=== PATIENT | female | born 1950 | race Caucasian/White ===

== ENCOUNTER 2017-09-09 10:33 | Emergency (ER) | payer MEDICAID ==
--- NOTE | 2017-09-09 10:53 | ER Document Report ---
ED General - General Mode of Arrival: Wheelchair Information source: Patient <CHRISTIE,TAMPURVI - Last Filed: 09/09/17 10:47> <DARRYL HARRELL - Last Filed: 09/09/17 13:38> - General Chief Complaint: Fever Stated Complaint: FEVER FALL Time Seen by Provider: 09/09/17 10:38 Notes: Patient is a 67 year old female presenting to the emergency department complaining of a fever of 100.5 onset this morning. Patient states that she also has symptoms of chest pain, sore throat, dry cough, and runny nose onset 3 days ago. Patient states that she had a mechanical trip and fall 3 days ago. She did not hit her head. At bedside patients voice is muffled. Patient currently takes Clonazepam for epilepsy. (STEPHANIE SORIANO) Chest pain is described as sharp and stabbing, no history of AR. (DARRYL HARRELL) - Related Data Allergies/Adverse Reactions: No Known Allergies Allergy (Verified 09/09/17 12:51) Past Medical History - General Information source: Patient - Social History Smoking Status: Current Every Day Smoker Cigarette use (# per day): Yes Chew tobacco use (# tins/day): No Smoking Education Provided: No Family History: Other - Father with a history of CVA, mother and 2 children with history of epilepsy Neurological Medical History: Reports: Hx Seizures - Immunizations Hx Diphtheria, Pertussis, Tetanus Vaccination: Yes <STEPHANIE SORIANO - Last Filed: 09/09/17 10:47> - Social History Family History: Other <DARRYL HARRELL - Last Filed: 09/09/17 13:38> Review of Systems - Review of Systems Constitutional: See HPI, Fever EENT: See HPI, Nose congestion Cardiovascular: See HPI, Chest pain Respiratory: No symptoms reported Gastrointestinal: No symptoms reported Genitourinary: No symptoms reported Female Genitourinary: No symptoms reported Musculoskeletal: No symptoms reported Skin: No symptoms reported Hematologic/Lymphatic: No symptoms reported Neurological/Psychological: No symptoms reported -: Yes All other systems reviewed and negative <STEPHANIE SORIANO - Last Filed: 09/09/17 10:47> Physical Exam - General General appearance: Appears well - HEENT Head: Normocephalic - Respiratory Respiratory status: No respiratory distress Breath sounds: Nonproductive cough, Wheezing - Expiratory - Cardiovascular Rhythm: Regular <STEPHANIE SORIANO - Last Filed: 09/09/17 10:47> - General General appearance: Alert In distress: None - HEENT Eyes: Normal Extraocular movements intact: Yes Mouth/Lips: Other - Edentulous, oral mucosa is moist, tongue is midline. Neck: Normal, Other - Trachea is midline, patient's voice is slightly muffled at this time however there is no evidence on physical examination of retropharyngeal abscess or peritonsillar abscess.. No: Anterior cervical chain - Cardiovascular Heart sounds: Normal auscultation Murmur: No - Neurological Neuro grossly intact: Yes - Psychological Associated symptoms: Normal affect - Skin Skin Temperature: Warm Skin Moisture: Dry Skin Color: Normal <DARRYL HARRELL - Last Filed: 09/09/17 13:38> - Vital signs Vitals: Temp Pulse BP Pulse Ox 98.8 F 101 H 127/66 H 96 09/09/17 10:44 09/09/17 10:44 09/09/17 10:44 09/09/17 10:44 Notes: Temperature is 98.8, heart rate is 97, blood pressure is 128/67, respiratory rate is 20, oxygen saturation is 95% on room air. (DARRYL HARRELL) Course <STEPHANIE SORIANO - Last Filed: 09/09/17 10:47> <DARRYL HARRELL - Last Filed: 09/09/17 13:38> - Re-evaluation Re-evalutation: 09/09/17 12:38 Chest x-ray shows no acute process, suspect the fever is viral in origin, given the wheezing we will start the patient on steroids and breathing treatments particularly given her smoking history. No indication for antibiotics. Discharge the patient home and asked her to follow-up with her primary care provider within the next week. (DARRYL HARRELL) - Vital Signs Vital signs: Temp Pulse Resp BP Pulse Ox 98.7 F 86 18 120/68 95 09/09/17 12:48 09/09/17 12:48 09/09/17 12:48 09/09/17 12:48 09/09/17 12:48 Discharge <STEPHANIE SORIANO - Last Filed: 09/09/17 10:47> <DARRYL HARRELL - Last Filed: 09/09/17 13:38> - Discharge Clinical Impression: Viral upper respiratory tract infection with cough, Tobacco abuse, Tobacco abuse counseling Condition: Stable Disposition: HOME, SELF-CARE Additional Instructions: Upper Respiratory Illness You have a viral infection of the respiratory passages -- a "cold." This common infection causes nasal congestion, drainage, and often sore throat and cough. It is caused by a virus and is highly contagious. The disease usually lasts a week or more, though the worst symptoms are usually over in 3 or 4 days. There is no "cure" for the viral infection -- it must run its course. If there is a complication, such as bacterial infection in the nose, sinuses, middle ear, or bronchial tubes, antibiotics may be required, but antibiotics won 't affect the virus. If you smoke, you should STOP!! Drink plenty of fluids. A humidifier may help. An expectorant medication or decongestant may make you more comfortable. Use acetaminophen or ibuprofen for fever or aches. See the doctor if fever persists over two or three days, if there is any significant worsening of your symptoms, or if you simply fail to improve as expected. Please use nasal saline rinses such as a NetiPot or NeilMed Sinus Rinses. I have prescribed steroids and an albuterol inhaler, this should help to decrease your cough and her wheezing. The should also take away your sharp stabbing chest pain. Prescriptions: Albuterol Sulfate [Proair HFA Inhalation Aerosol 8.5 gm MDI] 2 puff IH Q4H PRN # 1 mdi PRN Reason: Prednisone [Deltasone 20 mg Tablet] 3 tab PO DAILY 5 Days tablet Forms: Smoking Cessation Education Referrals: ZAHRA MAC DO [NO LOCAL MD] - Follow up as needed Scribe Attestation: 09/09/17 13:38 I personally performed the services described in the documentation, reviewed and edited the documentation which was dictated to the scribe in my presence, and it accurately records my words and actions. (DARRYL HARRELL) Scribe Documentation - Scribe Written by Kya:: Kya Lainez, 09/09/2017 10:56 acting as scribe for :: aKy <STEPHANIE SORIANO - Last Filed: 09/09/17 10:47>
--- NOTE | 2017-09-09 11:55 | RADIOLOGY REPORT (SQ) ---
EXAM DESCRIPTION: CHEST PA/LAT COMPLETED DATE/TIME: 09/09/2017 11:45 am REASON FOR STUDY: cough, fevers COMPARISON: Two-view chest 04/30/2014, 03/26/2014 EXAM PARAMETERS: NUMBER OF VIEWS: two views TECHNIQUE: Digital Frontal and Lateral radiographic views of the chest acquired. RADIATION DOSE: NA LIMITATIONS: none FINDINGS: LUNGS AND PLEURA: Stable biapical pleural-parenchymal scarring. Lungs are hyperinflated and hyperlucent from obstructive disease. No acute infiltrates. No pleural effusion. No pneumothorax. MEDIASTINUM AND HILAR STRUCTURES: No masses or contour abnormalities. HEART AND VASCULAR STRUCTURES: Heart normal size. No evidence for failure. BONES: Osteoporotic. No acute fracture HARDWARE: None in the chest. OTHER: No other significant finding. IMPRESSION: Obstructive lung disease. No focal infiltrates worrisome for pneumonia TECHNICAL DOCUMENTATION: JOB ID: [id number] [employer]- All Rights Reserved
[2017-09-09 12:49] VITALS: BP 120/68
== END 2017-09-09 13:00 | disposition home or self-care (01) ==
LOC: ER 10:33
DX: J06.9 Acute upper respiratory infection, unspecified (principal); B97.89 Other viral agents as the cause of diseases classified elsewhere; R50.9 Fever, unspecified; R07.9 Chest pain, unspecified; J02.9 Acute pharyngitis, unspecified; R05 Cough; R09.89 Other specified symptoms and signs involving the circulatory and respiratory systems; W19.XXXA Unspecified fall, initial encounter; F17.200 Nicotine dependence, unspecified, uncomplicated
CPT/HCPCS: 71020; 99283

== ENCOUNTER 2017-11-16 21:33 | Emergency (ER) | payer MEDICAID ==
[2017-11-16] MEDS ORDERED: ACETAMINOPHEN 325 MG TABLET PO ONE (23:37)
--- NOTE | 2017-11-16 23:39 | ER Document Report ---
ED General - General Chief Complaint: Chest Pain Stated Complaint: CHEST PAIN Notes: Patient complains of fever, cough and chest pain, with dysuria as well. Syptoms present for several days. Had some dysuria and urinary incontinence TRAVEL OUTSIDE OF THE [place] IN LAST 30 DAYS: No - Related Data Allergies/Adverse Reactions: No Known Allergies Allergy (Verified 09/09/17 12:51) Past Medical History - Social History Family History: Other Neurological Medical History: Reports: Hx Seizures Renal/ Medical History: Denies: Hx Peritoneal Dialysis - Immunizations Hx Diphtheria, Pertussis, Tetanus Vaccination: Yes
--- NOTE | 2017-11-16 23:48 | ER Document Report ---
ED Medical Screen (RME) - General Chief Complaint: Chest Pain Stated Complaint: CHEST PAIN Time Seen by Provider: 11/16/17 23:39 Notes: 67-year-old female patient to the emergency department complaining of cough, fever, chest pain. Also complaining of dysuria with frequency of urination and some urinary incontinence. Things have been present for several days. Does not get the flu shot because she is allergic to it. Does not smoke but used to. Patient denies any abdominal pain at this time. I have greeted and performed a rapid initial assessment of this patient. A comprehensive ED assessment and evaluation of the patient, analysis of test results and completion of the medical decision making process will be conducted by additional ED providers. TRAVEL OUTSIDE OF THE [place] IN LAST 30 DAYS: No - Related Data Allergies/Adverse Reactions: No Known Allergies Allergy (Verified 09/09/17 12:51) Past Medical History Neurological Medical History: Reports: Hx Seizures Renal/ Medical History: Denies: Hx Peritoneal Dialysis - Immunizations Hx Diphtheria, Pertussis, Tetanus Vaccination: Yes
[2017-11-17 00:08] LABS: ABSOLUTE LYMPHOCYTES (AUTO) 0.9 10^3/uL (0.5-4.7); ABSOLUTE MONOCYTES (AUTO) 0.5 10^3/uL (0.1-1.4); BASOPHILS % (AUTO) 0.6 % (0-2); HEMATOCRIT 37.4 % (36.0-47.0); HEMOGLOBIN 12.4 g/dL (12.0-15.5); LYMPHOCYTES % (AUTO) 16.2 % (13-45); MEAN CORPUSCULAR HEMOGLOBIN 27.2 pg (27.0-33.4); MEAN CORPUSCULAR HGB CONC 33.1 g/dL (32.0-36.0); MEAN CORPUSCULAR VOLUME 82 fl (80-97); MONOCYTES % (AUTO) 9.4 % (3-13); PLATELET COUNT 224 10^3/uL (150-450); RED BLOOD COUNT 4.55 10^6/uL (3.72-5.28); RED CELL DISTRIBUTION WIDTH 15.7 % (11.5-14.0); SEGMENTED NEUTROPHILS % (AUTO) 73.8 % (42-78); TOTAL CELLS COUNTED % (AUTO) 100 %; WHITE BLOOD COUNT 5.4 10^3/uL (4.0-10.5)
[2017-11-17 00:30] LABS: A TYPE INFLUENZA AG NEGATIVE (NEGATIVE); B INFLUENZA AG NEGATIVE (NEGATIVE)
[2017-11-17 00:31] LABS: APPEARANCE,URINE CLOUDY; BILIRUBIN,URINE NEGATIVE (NEGATIVE); COLOR,URINE AMBER; GLUCOSE, URINE NEGATIVE (NEGATIVE); KETONES,URINE TRACE mg/dL (NEGATIVE); LEUKOCYTE ESTERASE,URINE MODERATE (NEGATIVE); NITRITE,URINE NEGATIVE (NEGATIVE); PROTEIN,URINE NEGATIVE (NEGATIVE); URINE SPECIFIC GRAVITY 1.026; UROBILINOGEN,URINE NEGATIVE mg/dL (<2.0)
[2017-11-17 00:33] LABS: ALANINE AMINOTRANSFERASE 37 U/L (9-52); ALBUMIN 3.9 g/dL (3.5-5.0); ALKALINE PHOSPHATASE 83 U/L (38-126); ANION GAP 10 (5-19); ASPARTATE AMINO TRANSFERASE 35 U/L (14-36); BILIRUBIN,DIRECT 0.2 mg/dL (0.0-0.4); BILIRUBIN,TOTAL 0.3 mg/dL (0.2-1.3); BLOOD UREA NITROGEN 12 mg/dL (7-20); CALCIUM 9.2 mg/dL (8.4-10.2); CARBON DIOXIDE 24 mmol/L (22-30); CHLORIDE 103 mmol/L (98-107); GLUCOSE 101 mg/dL (75-110); POTASSIUM 3.7 mmol/L (3.6-5.0); SODIUM 136.5 mmol/L (137-145); TOTAL PROTEIN 6.1 g/dL (6.3-8.2)
--- NOTE | 2017-11-17 02:02 | ER Document Report ---
ED General - General Chief Complaint: Chest Pain Stated Complaint: CHEST PAIN Time Seen by Provider: 11/16/17 23:39 Notes: She is a 59-year-old female comes in with complaint of some weakness, fever, coughing, and some dysuria. She also mentions she has some left shoulder pain. She said the shoulder pain is from where she had a pickup her boyfriend. She says when he picked him up she felt a strain in her shoulder. She says she is able move her shoulder well but is just sore. No actual blunt trauma to the shoulder. On the complaints chart she did right chest pain; however, the patient says no chest pain she has is when she coughs. She denies any vomiting. No abdominal pain. No diarrhea. No recent extremity swelling. She is a former smoker who quit 1 month ago. No other complaints at this time. TRAVEL OUTSIDE OF THE [place] IN LAST 30 DAYS: No - Related Data Allergies/Adverse Reactions: No Known Allergies Allergy (Verified 09/09/17 12:51) Past Medical History - Social History Smoking Status: Former Smoker Frequency of alcohol use: None Drug Abuse: None Family History: Other Patient has suicidal ideation: No Patient has homicidal ideation: No Neurological Medical History: Reports: Hx Seizures Renal/ Medical History: Denies: Hx Peritoneal Dialysis - Immunizations Hx Diphtheria, Pertussis, Tetanus Vaccination: Yes Review of Systems - Review of Systems Notes: My Normal Review Basic REVIEW OF SYSTEMS: CONSTITUTIONAL : Denies fever, chills, or sweats. Denies recent illness. EENT: Nasal congestion. CARDIOVASCULAR: Chest pain with cough. RESPIRATORY: Recurrent cough. GASTROINTESTINAL: Denies abdominal pain. Denies nausea, vomiting, or diarrhea. Denies constipation. Last BM: GENITOURINARY: Dysuria. MUSCULOSKELETAL: Denies neck or back pain or joint pain or swelling. SKIN: Denies rash or skin lesions. NEUROLOGICAL: Denies altered mental status or loss of consciousness. Denies headache. Denies weakness or paralysis or loss of use of either side. Denies problems with gait or speech. Denies sensory or motor loss. ALL OTHER SYSTEMS REVIEWED AND NEGATIVE. Physical Exam - Vital signs Vitals: Temp Pulse Resp BP Pulse Ox 101.6 F H 93 20 110/60 93 11/16/17 22:41 11/16/17 22:41 11/16/17 22:41 11/16/17 22:41 11/16/17 22:41 - Notes Notes: General Appearance: Well nourished, alert, cooperative, no acute distress, no obvious discomfort. Well appearing. Dry cough during exam. Vitals: reviewed, See vital signs table. Head: no swelling or tenderness to the head Eyes: PERRL, EOMI, Conjuctiva clear Mouth: No decreasd moisture. No teeth. Throat: No tonsillar inflammation, No airway obstruction, No lymphadenopathy Lungs: No wheezing, No rales, No rhonci, No accessory muscle use, good air exchange bilaterally. Heart: Normal rate, Regular rythm, No murmur, no rub Abdomen: Normal BS, soft, No rigidity, No abdominal tenderness, No guarding, no rebound, no abdominal masses, no organomegaly Extremities: strength 5/5 in all extremities, good pulses in all extremities, no swelling or tenderness in the extremities, no edema. Skin: warm, dry, appropriate color, no rash Neuro: speech clear, oriented x 3, normal affect, responds appropriately to questions. Course - Re-evaluation Re-evalutation: 11/17/17 03:58 Patient's chest x-ray showed no evidence of pneumonia. Her laboratory evaluation is unremarkable except for UTI. This would explain her dysuria. She also has a upper respiratory infection being that she has nasal congestion and cough. She has no wheezing or lung ellis. She does not require any treatments at this time. Her boyfriend's recent decision admitted to the hospital because of having upper respiratory type infection symptoms but then also passing out on the floor. He had some rhabdomyolysis. She herself has not felt dizzy or lightheaded or felt like she had a pass out. Her left shoulder appears to be a chronic pain worse when she picked up her boyfriend off the floor. She has full range of motion of the shoulder with a little bit of pain. No deformity. No blunt trauma. No need for x-ray. Patient will be discharged home with prescription for Keflex. She strongly encouraged to return to ER if she has difficulty breathing, fevers, dental pain, or she feels that she is worsening. Patient agrees with plan will be discharged home. Dictation of this chart was performed using voice recognition software; therefore, there may be some unintended grammatical errors. - Vital Signs Vital signs: Temp Pulse Resp BP Pulse Ox 100.3 F 85 20 111/70 93 11/17/17 01:18 11/17/17 01:18 11/17/17 01:18 11/17/17 01:18 11/17/17 01:18 - Laboratory Result Diagrams: 11/16/17 23:40 11/16/17 23:40 Laboratory results interpreted by me: 11/16/17 11/16/17 11/16/17 23:40 23:40 23:45 RDW 15.7 H Sodium 136.5 L Total Protein 6.1 L Urine Ketones TRACE H Urine Blood SMALL H Ur Leukocyte Esterase MODERATE H Discharge - Discharge Clinical Impression: UTI (urinary tract infection) Qualifiers: Urinary tract infection type: site unspecified Hematuria presence: without hematuria Qualified Code(s): N39.0 - Urinary tract infection, site not specified URI (upper respiratory infection) Qualifiers: URI type: unspecified URI Qualified Code(s): J06.9 - Acute upper respiratory infection, unspecified Condition: Good Disposition: HOME, SELF-CARE Additional Instructions: Please take the antibiotics as prescribed. You testing shows that you do have a bladder infection. You also likely have a cold. Please take the medications as prescribed. Please return to the ER immediately if you have fevers, difficulty breathing, or if you feel that you are worsening. Follow up with your doctor in 1-2 days. Prescriptions: Cephalexin Monohydrate [Keflex 500 mg Capsule] 500 mg PO BID 7 Days capsule
[2017-11-17] MEDS ORDERED: LIDOCAINE 1% INJ-PF (10 MG/ML) 30 ML SDV INFIL ONE (03:50)
[2017-11-17] MEDS ORDERED: CEFTRIAXONE INJ 500 MG VIAL IM ONE (03:50)
--- NOTE | 2017-11-17 04:18 | RADIOLOGY REPORT (SQ) ---
EXAM DESCRIPTION: CHEST PA/LAT CLINICAL HISTORY: cough fever COMPARISON: 09/09/2017 FINDINGS: Frontal and lateral views of the chest. Atherosclerotic calcification aortic arch. Heart is not enlarged. Hyperinflation. No consolidation, pneumothorax, or pleural effusion. No displaced rib fractures identified. Upper abdominal soft tissues are unremarkable. IMPRESSION: 1. No acute pulmonary process identified. Findings suggest obstructive lung disease.
[2017-11-17 06:55] VITALS: BP 117/53
--- NOTE | 2017-11-17 11:56 | EKG REPORT ---
SEVERITY:- ABNORMAL ECG - SINUS RHYTHM NONSPECIFIC REPOL ABNORMALITY, DIFFUSE LEADS : Confirmed by: Sindhu Shelton 17-Nov-2017 11:54:42
== END 2017-11-17 06:40 | disposition home or self-care (01) ==
LOC: ER 21:33
DX: J06.9 Acute upper respiratory infection, unspecified (principal); N39.0 Urinary tract infection, site not specified; R53.1 Weakness; R50.9 Fever, unspecified; R05 Cough; R09.81 Nasal congestion; R30.0 Dysuria; M25.512 Pain in left shoulder; R07.89 Other chest pain; Z87.891 Personal history of nicotine dependence; Z88.1 Allergy status to other antibiotic agents
CPT/HCPCS: 93005; 99285; 96372; 36415; 87086; 85025; 87088; 80053; 81001; 84484; 87186; 87804; 71046; 93010; J3490 ×2; J0696

== ENCOUNTER 2018-02-10 14:56 | Emergency (ER) | payer MEDICARE, MEDICAID ==
--- NOTE | 2018-02-10 16:06 | ER Document Report ---
ED Dizziness/Weakness - General Mode of Arrival: Ambulatory Information source: Patient TRAVEL OUTSIDE OF THE [place] IN LAST 30 DAYS: No <LUANA LOPEZ - Last Filed: 02/10/18 16:36> <JOSE ROSS - Last Filed: 02/10/18 18:11> - General Chief Complaint: Dizziness Stated Complaint: WEAKNESS Time Seen by Provider: 02/10/18 15:47 Notes: 68 y.o female presents to the ED with weakness and dizziness for the past 2 weeks. Pt states that she has been falling due to dizziness whenever she stands up. She denies being dizzy when sitting still. Pt states that her dizziness worsens when turning her head. Pt reports that she takes medication for a sleep disorder. She denies any HTN, DM, or any other medical issues. She reports a PSHx of hysterectomy. (LUANA LOPEZ) - Related Data Allergies/Adverse Reactions: No Known Allergies Allergy (Verified 09/09/17 12:51) Past Medical History - General Information source: Patient - Social History Smoking Status: Current Some Day Smoker Chew tobacco use (# tins/day): No Smoking Education Provided: Yes Frequency of alcohol use: None Drug Abuse: None Lives with: Alone - [facility] Family History: Other Neurological Medical History: Reports: Hx Seizures Renal/ Medical History: Denies: Hx Peritoneal Dialysis Past Surgical History: Reports: Hx Hysterectomy - Immunizations Hx Diphtheria, Pertussis, Tetanus Vaccination: Yes <LUANA LOPEZ - Last Filed: 02/10/18 16:36> Review of Systems - Review of Systems Constitutional: See HPI, Weakness EENT: No symptoms reported Cardiovascular: No symptoms reported Respiratory: No symptoms reported Gastrointestinal: No symptoms reported Genitourinary: No symptoms reported Female Genitourinary: No symptoms reported Musculoskeletal: No symptoms reported Skin: No symptoms reported Hematologic/Lymphatic: No symptoms reported Neurological/Psychological: See HPI, Other - Dizziness and falling down -: Yes All other systems reviewed and negative <LUANA LOPEZ - Last Filed: 02/10/18 16:36> Physical Exam <LUANA LOPEZ - Last Filed: 02/10/18 16:36> <JOSE ROSS - Last Filed: 02/10/18 18:11> - Vital signs Vitals: Temp Pulse Resp BP Pulse Ox 97.8 F 67 18 121/54 L 99 02/10/18 15:15 02/10/18 15:15 02/10/18 15:15 02/10/18 15:15 02/10/18 15:15 - Notes Notes: General: Alert, oriented, appears well. HEENT: Normocephalic. Atraumatic. Oropharynx clear. PERRL. Lateral gaze nystagmus. Had patient move head [id number] with quick motions which caused sudden severe dizziness. Neck: Supple. Non-tender. No bruits Respiratory: No respiratory distress. Clear and equal breath sounds bilaterally. Cardiovascular: Regular rate and rhythm. Abdominal: Normal Inspection. Soft, non-tender. No distension. Normal Bowel Sounds. Back: Non-tender. No deformity or step off. Extremities: Moves all four extremities. Upper extremities: Normal inspection. Normal ROM. Lower extremities: Normal inspection. No edema. Normal ROM. Neurological: Normal cognition. AAOx4. Normal speech. Psychological: Normal affect. Normal Mood. Skin: Warm. Dry. Normal color. (LUANA LOPEZ) Course - Laboratory Result Diagrams: 02/10/18 16:18 02/10/18 16:18 <LUANA LOPEZ - Last Filed: 02/10/18 16:36> - Laboratory Result Diagrams: 02/10/18 16:18 02/10/18 16:18 - Diagnostic Test Radiology reviewed: Image reviewed, Reports reviewed - CT scan of the head is unremarkable. - EKG Interpretation by [facility] EKG shows normal: Sinus rhythm, [place], Intervals, QRS Complexes, ST-T Waves Rate: Normal - 71 Rhythm: NSR When compared to previous EKG there are: No significant change <JOSE ROSS - Last Filed: 02/10/18 18:11> - Re-evaluation Re-evalutation: 02/10/18 17:29 Patient states the dizziness seems to be better. Had her sit up and look about rapidly and she only had minimal dizziness associated with it at this time after the meclizine. (JOSE ROSS) - Vital Signs Vital signs: Temp Pulse Resp BP Pulse Ox 97.8 F 67 16 118/73 98 02/10/18 15:15 02/10/18 15:15 02/10/18 17:01 02/10/18 17:01 02/10/18 17:01 - Laboratory Laboratory results interpreted by me: 02/10/18 02/10/18 02/10/18 16:18 16:18 17:26 RDW 16.0 H Creatinine 0.48 L Total Protein 5.5 L Ur Leukocyte Esterase TRACE H Discharge <LUANA LOPEZ - Last Filed: 02/10/18 16:36> <JOSE ROSS - Last Filed: 02/10/18 18:11> - Discharge Clinical Impression: Vertigo Condition: Stable Disposition: HOME, SELF-CARE Additional Instructions: Vertigo: You seem to be experiencing vertigo -- a whirling dizziness which may be accompanied by nausea and vomiting or staggering. Vertigo is often caused by an irritation of the inner ear, in which case it is called labyrinthitis. It can also be a symptom of a degenerating inner ear, nerve damage, or brain injury. Your physician has evaluated you to determine whether any further testing is necessary. Vertigo is often treated with dramamine or meclizine. These medications are helpful, but stronger medication may be needed if you are vomiting. Rest in bed. You should not drive or operate machinery until completely better. It may take one to three weeks for recovery. If there are new symptoms, such as decreased hearing or vision, severe headache, weakness or faintness, or confusion, call the physician. Take the medication as prescribed. Take fall precautions as long as you are having dizziness. Follow-up with your doctor next week if not improving. RETURN TO THE EMERGENCY ROOM IF ANY NEW OR WORSENING SYMPTOMS. Prescriptions: Meclizine HCl [Antivert 25 mg Tablet] 25 mg PO TID PRN #20 tablet PRN Reason: Scribe Attestation: 02/10/18 17:29 I personally performed the services described in the documentation, reviewed and edited the documentation which was dictated to the scribe in my presence, and it accurately records my words and actions. (JOSE ROSS) Scribe Documentation - Scribe Written by Kya:: Kya Salinas 02/10/2018 1613 acting as scribe for :: Tangela <LUANA LOPEZ - Last Filed: 02/10/18 16:36>
[2018-02-10] MEDS ORDERED: MECLIZINE HCL 25 MG TABLET PO ONE (16:09)
[2018-02-10 16:28] LABS: ABSOLUTE EOSINOPHILS # (AUTO) 0.1 10^3/uL (0.0-0.6); ABSOLUTE LYMPHOCYTES (AUTO) 1.7 10^3/uL (0.5-4.7); ABSOLUTE MONOCYTES (AUTO) 0.4 10^3/uL (0.1-1.4); ABSOLUTE NEUT (AUTO) 2.9 10^3/uL (1.7-8.2); BASOPHILS % (AUTO) 0.5 % (0-2); EOSINOPHILS % (AUTO) 1.2 % (0-6); HEMATOCRIT 36.8 % (36.0-47.0); HEMOGLOBIN 12.1 g/dL (12.0-15.5); LYMPHOCYTES % (AUTO) 32.9 % (13-45); MEAN CORPUSCULAR HEMOGLOBIN 27.8 pg (27.0-33.4); MEAN CORPUSCULAR HGB CONC 32.8 g/dL (32.0-36.0); MEAN CORPUSCULAR VOLUME 85 fl (80-97); MONOCYTES % (AUTO) 8.7 % (3-13); PLATELET COUNT 279 10^3/uL (150-450); RED BLOOD COUNT 4.35 10^6/uL (3.72-5.28); SEGMENTED NEUTROPHILS % (AUTO) 56.7 % (42-78); TOTAL CELLS COUNTED % (AUTO) 100 %; WHITE BLOOD COUNT 5.2 10^3/uL (4.0-10.5)
--- NOTE | 2018-02-10 16:40 | RADIOLOGY REPORT (SQ) ---
EXAM DESCRIPTION: CT HEAD WITHOUT COMPLETED DATE/TIME: 02/10/2018 4:28 pm REASON FOR STUDY: 2 weeks of dizzy, falling, headaches COMPARISON: 04/30/2014. TECHNIQUE: Axial images acquired through the brain without intravenous contrast. Images reviewed wi th bone, brain and subdural windows. Additional sagittal and coronal reconstructions were generated. Images stored on PACS. All CT scanners at this facility use dose modulation, iterative reconstruction, and/or weight based d osing when appropriate to reduce radiation dose to as low as reasonably achievable (ALARA). [facility]: Dose Right [facility]: CareDose [facility]: Dose Right [facility]: Teradose 4D [facility]: UpNext RADIATION DOSE: CT Rad equipment meets quality standard of care and radiation dose reduction techniq ues were employed. CTDIvol: 53.2 mGy. DLP: 884 mGy-cm. mGy. LIMITATIONS: None. FINDINGS: VENTRICLES: Normal size and contour. CEREBRUM: No masses. No hemorrhage. No midline shift. No evidence for acute infarction. Normal gra y/white matter differentiation. No areas of low density in the white matter. CEREBELLUM: No masses. No hemorrhage. No alteration of density. No evidence for acute infarction. EXTRAAXIAL SPACES: No fluid collections. No masses. ORBITS AND GLOBE: No intra- or extraconal masses. Normal contour of globe without masses. CALVARIUM: No fracture. PARANASAL SINUSES: No fluid or mucosal thickening. SOFT TISSUES: No mass or hematoma. OTHER: No other significant finding. IMPRESSION: NORMAL BRAIN CT WITHOUT CONTRAST. EVIDENCE OF ACUTE STROKE: NO. COMMENT: Quality ID # [id number]: Final reports with documentation of one or more dose reduction techniques (e.g., Automated exposure control, adjustment of the mA and/or kV according to patient size, use of iterative reconstruction technique) TECHNICAL DOCUMENTATION: JOB ID: [id number] [employer]- All Rights Reserved Reading location - IP/workstation name: [email or web address]
[2018-02-10 16:58] LABS: ALANINE AMINOTRANSFERASE 28 U/L (9-52); ALBUMIN 3.5 g/dL (3.5-5.0); ALKALINE PHOSPHATASE 98 U/L (38-126); ANION GAP 9 (5-19); ASPARTATE AMINO TRANSFERASE 20 U/L (14-36); BILIRUBIN,DIRECT 0.2 mg/dL (0.0-0.4); BILIRUBIN,TOTAL 0.2 mg/dL (0.2-1.3); BLOOD UREA NITROGEN 11 mg/dL (7-20); CALCIUM 9.1 mg/dL (8.4-10.2); CARBON DIOXIDE 27 mmol/L (22-30); CHLORIDE 107 mmol/L (98-107); GLUCOSE 95 mg/dL (75-110); POTASSIUM 4.2 mmol/L (3.6-5.0); TOTAL PROTEIN 5.5 g/dL (6.3-8.2)
[2018-02-10 17:57] LABS: APPEARANCE,URINE CLEAR; BILIRUBIN,URINE NEGATIVE (NEGATIVE); COLOR,URINE YELLOW; GLUCOSE, URINE NEGATIVE (NEGATIVE); KETONES,URINE NEGATIVE (NEGATIVE); LEUKOCYTE ESTERASE,URINE TRACE (NEGATIVE); NITRITE,URINE NEGATIVE (NEGATIVE); PROTEIN,URINE NEGATIVE (NEGATIVE); URINE SPECIFIC GRAVITY 1.011; UROBILINOGEN,URINE NEGATIVE mg/dL (<2.0)
[2018-02-10 18:36] VITALS: BP 127/57
--- NOTE | 2018-02-10 21:12 | EKG REPORT ---
SEVERITY:- BORDERLINE ECG - SINUS RHYTHM BORDERLINE INFERIOR Q WAVES : Confirmed by: Sindhu Shelton 10-Feb-2018 21:12:15
== END 2018-02-10 18:37 | disposition home or self-care (01) ==
LOC: ER 14:56
DX: R42 Dizziness and giddiness (principal); R53.1 Weakness; Z90.710 Acquired absence of both cervix and uterus; F17.200 Nicotine dependence, unspecified, uncomplicated
CPT/HCPCS: 93005; 99284; 36415; 85025; 80053; 81001; 70450; 93010; A9270

== ENCOUNTER 2018-08-14 09:16 | Day surgery (SDC) | payer MEDICAID, MEDICARE ==
[~2018-08-14 09:16] MED LIST: PROPOFOL INJ 200 MG/20 ML VIAL IV ONE
[2018-08-14 11:27] VITALS: BP 138/78
--- NOTE | 2018-08-14 12:39 | Operative Report ---
Operative Report DATE OF SURGERY: 08/14/18 Operative Report: The risks, benefits and alternatives of the procedure including risk of bleeding , perforation requiring surgery are explained to the patient in detail and informed consent is obtained. The patient is taken back to the endoscopy suite and placed in a left, lateral decubital position. Timeout was called. Propofol medication is administered. A rectal examination is done which did not reveal any masses, tears or fissures. An Olympus videoscope was inserted into the patient's rectum. The scope was then carefully advanced all the way to the cecum. The cecum was identified by the usual anatomical landmarks including the ileocecal valve as well as the appendiceal office. Photodocumentation is obtained. The scope was then sequentially pulled back via the various segments of the colon including the ascending colon, hepatic flexure, transverse colon, splenic flexure, descending colon and finally to the rectosigmoid portions of the colon. Retroflexion maneuver is performed. PREOPERATIVE DIAGNOSIS: Colorectal cancer screening. Change of bowel habits POSTOPERATIVE DIAGNOSIS: Right side colon inflammation status post biopsy rule out lymphocytic, microscopic, collagenous colitis. Somewhat of a redundant colon. Internal hemorrhoids OPERATION: Colonoscopy with biopsy SURGEON: CARIDAD ERICKSON ANESTHESIA: LMAC TISSUE REMOVED OR ALTERED: As noted above. COMPLICATIONS: None. ESTIMATED BLOOD LOSS: None. INTRAOPERATIVE FINDINGS: As noted above. PROCEDURE: Patient tolerated the procedure well. No immediate postprocedure complications are noted. Patient discharged in good condition. Discharge date 08/15/2018. Discharge diet: Regular. Discharge activity: Regular. 2-3-week follow-up to discuss findings. Patient is instructed call the office or proceed to the emergency room should there be any further problems or questions. If biopsies are negative she can likely go 10 years for her next surveillance.
== END 2018-08-14 11:38 | disposition home or self-care (01) ==
LOC: END 09:16
PROVIDERS: ATTEND Internal Medicine Gastroenterology
DX: K52.9 Noninfective gastroenteritis and colitis, unspecified (principal); K64.8 Other hemorrhoids; Q43.8 Other specified congenital malformations of intestine; J45.909 Unspecified asthma, uncomplicated; G40.909 Epilepsy, unspecified, not intractable, without status epilepticus; R06.01 Orthopnea; E78.01 Familial hypercholesterolemia; F17.210 Nicotine dependence, cigarettes, uncomplicated; Z79.899 Other long term (current) drug therapy; Z79.51 Long term (current) use of inhaled steroids; Z79.1 Long term (current) use of non-steroidal anti-inflammatories (NSAID)
CPT/HCPCS: 45380; 88305 ×2; J2704; 811

== ENCOUNTER 2018-12-01 13:59 | Emergency (ER) | payer MEDICAID ==
--- NOTE | 2018-12-01 19:30 | ER Document Report ---
ED Medical Screen (RME) - General Chief Complaint: Abdominal Pain Stated Complaint: ABDOMINAL PAIN,DIARRHEA Time Seen by Provider: 12/01/18 19:19 Primary Care Provider: LEONIDES KELLER MD [Primary Care Provider] - Follow up as needed Mode of Arrival: Ambulatory Information source: Patient Notes: 68-year-old female presents emergency department with complaints of right lower quadrant, suprapubic area, left lower quadrant abdominal pain and diarrhea that is been present for the last 3 weeks. Patient states that she is been taking Imodium without relief of symptoms. She is complaining of some dysuria, increased urgency, increased frequency. She denies any nausea or vomiting. No recent antibiotic use. I have greeted and performed a rapid initial assessment of this patient. A comprehensive ED assessment and evaluation of the patient, analysis of test results and completion of the medical decision making process will be conducted by additional ED providers. PHYSICAL EXAMINATION: GENERAL: Well-appearing, well-nourished and in no acute distress. HEAD: Atraumatic, normocephalic. EYES: Pupils equal round extraocular movements intact, conjunctiva are normal. ENT: Nares patent NECK: Normal range of motion LUNGS: No respiratory distress Musculoskeletal: Normal range of motion NEUROLOGICAL: Normal speech, normal gait. TRAVEL OUTSIDE OF THE [place] IN LAST 30 DAYS: No - Related Data Allergies/Adverse Reactions: meclizine Adverse Reaction (Severe, Verified 08/14/18 09:17) Hallucinations Past Medical History - Social History Frequency of alcohol use: None Drug Abuse: None - Past Medical History Cardiac Medical History: Denies: Hx Coronary Artery Disease, Hx Heart Attack, Hx Hypertension Pulmonary Medical History: Reports: Hx Pneumonia - HX Denies: Hx Asthma, Hx Bronchitis, Hx COPD Neurological Medical History: Reports: Hx Seizures - 4 WEEKS AGO LAST ONE. Denies: Hx Cerebrovascular Accident Renal/ Medical History: Denies: Hx Peritoneal Dialysis Musculoskeltal Medical History: Denies Hx Arthritis Psychiatric Medical History: Reports: Hx Depression Past Surgical History: Reports: Hx Hysterectomy - Immunizations Hx Diphtheria, Pertussis, Tetanus Vaccination: Yes Physical Exam - Vital signs Vitals: Temp Pulse Resp BP Pulse Ox 98.8 F 76 16 133/73 H 96 12/01/18 14:32 12/01/18 14:32 12/01/18 14:32 12/01/18 14:32 12/01/18 14:32 Course - Vital Signs Vital signs: Temp Pulse Resp BP Pulse Ox 98.8 F 76 16 133/73 H 96 12/01/18 14:32 12/01/18 14:32 12/01/18 14:32 12/01/18 14:32 12/01/18 14:32 Doctor's Discharge - Discharge Referrals: LEONIDES KELLER MD [Primary Care Provider] - Follow up as needed
[2018-12-01 21:00] LABS: ABSOLUTE EOSINOPHILS # (AUTO) 0.1 10^3/uL (0.0-0.6); ABSOLUTE LYMPHOCYTES (AUTO) 1.9 10^3/uL (0.5-4.7); ABSOLUTE MONOCYTES (AUTO) 0.6 10^3/uL (0.1-1.4); ABSOLUTE NEUT (AUTO) 3.9 10^3/uL (1.7-8.2); BASOPHILS % (AUTO) 0.6 % (0-2); EOSINOPHILS % (AUTO) 1.3 % (0-6); HEMATOCRIT 34.9 % (36.0-47.0); HEMOGLOBIN 11.4 g/dL (12.0-15.5); LYMPHOCYTES % (AUTO) 29.1 % (13-45); MEAN CORPUSCULAR HEMOGLOBIN 26.9 pg (27.0-33.4); MEAN CORPUSCULAR HGB CONC 32.8 g/dL (32.0-36.0); MEAN CORPUSCULAR VOLUME 82 fl (80-97); MONOCYTES % (AUTO) 9.8 % (3-13); PLATELET COUNT 428 10^3/uL (150-450); RED BLOOD COUNT 4.24 10^6/uL (3.72-5.28); RED CELL DISTRIBUTION WIDTH 16.1 % (11.5-14.0); SEGMENTED NEUTROPHILS % (AUTO) 59.2 % (42-78); TOTAL CELLS COUNTED % (AUTO) 100 %; WHITE BLOOD COUNT 6.5 10^3/uL (4.0-10.5)
[2018-12-01 21:11] LABS: APPEARANCE,URINE SLIGHTLY-CLOUDY; BILIRUBIN,URINE NEGATIVE (NEGATIVE); COLOR,URINE YELLOW; GLUCOSE, URINE NEGATIVE (NEGATIVE); KETONES,URINE NEGATIVE (NEGATIVE); LEUKOCYTE ESTERASE,URINE SMALL (NEGATIVE); NITRITE,URINE NEGATIVE (NEGATIVE); PROTEIN,URINE NEGATIVE (NEGATIVE); UROBILINOGEN,URINE NEGATIVE mg/dL (<2.0)
[2018-12-01 21:30] LABS: ALANINE AMINOTRANSFERASE 31 U/L (9-52); ALBUMIN 3.7 g/dL (3.5-5.0); ALKALINE PHOSPHATASE 103 U/L (38-126); ANION GAP 9 (5-19); ASPARTATE AMINO TRANSFERASE 51 U/L (14-36); BILIRUBIN,DIRECT 0.3 mg/dL (0.0-0.4); BILIRUBIN,TOTAL 0.4 mg/dL (0.2-1.3); BLOOD UREA NITROGEN 5 mg/dL (7-20); CARBON DIOXIDE 28 mmol/L (22-30); CHLORIDE 107 mmol/L (98-107); GLUCOSE 77 mg/dL (75-110); LIPASE 32.3 U/L (23-300); POTASSIUM 3.6 mmol/L (3.6-5.0); SODIUM 143.7 mmol/L (137-145); TOTAL PROTEIN 5.8 g/dL (6.3-8.2)
[2018-12-01] MEDS ORDERED: NORMAL SALINE 1000 ML 1,000 ML IV ONE (23:05)
--- NOTE | 2018-12-01 23:33 | RADIOLOGY REPORT (SQ) ---
EXAM DESCRIPTION: CT ABDOMEN PELVIS WITH IV CONTRAST COMPLETED DATE/TME: 12/01/2018 19:27 CLINICAL HISTORY: 68 years, Female, LLQ pain COMPARISON: None. TECHNIQUE: 368 Images stored on PACS. All CT scanners at this facility use dose modulation, iterative reconstruction, and/or weight based dosing when appropriate to reduce radiation dose to as low as reasonably achievable (ALARA). [facility]: Dose Right [facility]: CareDose [facility]: Dose Right [facility]: Teradose 4D [facility]: 3CI LIMITATIONS: None. FINDINGS: Limited evaluation of the lung bases demonstrates a groundglass nodule measuring 4.8 mm in the lateral right middle lobe. There is also a groundglass subpleural nodule in the posterior right lung base, measuring 4.4 mm. Osseous structures are grossly intact. Fatty infiltrative change to the liver. The gallbladder is present. The spleen, adrenal glands, pancreas, kidneys are unremarkable. Moderate atheromatous change. Large amount stool in the colon. No gross evidence for bowel obstruction. No free air or free fluid. Surgical clips in the left hemipelvis. Normal appendix. IMPRESSION: Groundglass nodule of the right middle lobe and right lung base. Please refer to below Fleischner Society criteria for further assessment. Fatty infiltrative change to the liver. Moderate atheromatous change. Large amount of stool in the colon. 2017 Fleischner Society Recommendations for Multiple Solid Lung Nodules Follow-Up base on size (average of long- and short-axis diameters). Use most suspicious nodule for followup. Nodule Size <6 mm Low-Risk Patient: No routine follow-up Nodule Size <6 mm High-Risk Patient: Optional CT at 12 months Nodule Size 6-8 mm Low-Risk Patient: CT at 3-[address] at 18-24 months Nodule Size 6-8 mm High-Risk Patient: CT at 3-6 months then at 18-24 months Nodule Size (mm) >8 Low-Risk Patient: CT at 3-6 months, then consider CT at 18-24 months Nodule Size (mm) >8 High-Risk Patient: CT at 3-6 months, then at 18-24 months TECHNICAL DOCUMENTATION: Quality ID # [id number]: Final reports with documentation of one or more dose reduction techniques (e.g., Automated exposure control, adjustment of the mA and/or kV according to patient size, use of iterative reconstruction technique) copyright 2011 [employer]- All Rights Reserved
--- NOTE | 2018-12-02 00:04 | ER Document Report ---
ED General - General Chief Complaint: Abdominal Pain Stated Complaint: ABDOMINAL PAIN,DIARRHEA Time Seen by Provider: 12/01/18 19:19 Primary Care Provider: LEONIDES KELLER MD [Primary Care Provider] - Follow up in 3-5 days Mode of Arrival: Ambulatory Notes: Patient is a 68-year-old female presents with to the ER with complaint of nausea vomiting and diarrhea. She says that she has not had diarrhea now on was 36 hours. She had no blood in her stool. She has not been vomiting today. She h ad some mild abdominal pain but that has since resolved as well. No recent antibiotic use. No fevers. No other complaints at this time. TRAVEL OUTSIDE OF THE [place] IN LAST 30 DAYS: No - Related Data Allergies/Adverse Reactions: meclizine Adverse Reaction (Severe, Verified 08/14/18 09:17) Hallucinations Past Medical History - General Information source: Patient - Social History Smoking Status: Current Every Day Smoker Frequency of alcohol use: None Drug Abuse: None Family History: Other Patient has suicidal ideation: No Patient has homicidal ideation: No - Past Medical History Cardiac Medical History: Denies: Hx Coronary Artery Disease, Hx Heart Attack, Hx Hypertension Pulmonary Medical History: Reports: Hx Pneumonia - HX Denies: Hx Asthma, Hx Bronchitis, Hx COPD Neurological Medical History: Reports: Hx Seizures - 4 WEEKS AGO LAST ONE. Denies: Hx Cerebrovascular Accident Renal/ Medical History: Denies: Hx Peritoneal Dialysis Musculoskeletal Medical History: Denies Hx Arthritis Psychiatric Medical History: Reports: Hx Depression Past Surgical History: Reports: Hx Hysterectomy - Immunizations Hx Diphtheria, Pertussis, Tetanus Vaccination: Yes Review of Systems - Review of Systems Notes: My Normal Review Basic REVIEW OF SYSTEMS: CONSTITUTIONAL : Denies fever, chills, or sweats. Denies recent illness. EENT: Denies eye, ear, throat, or mouth pain or symptoms. Denies nasal or sinus congestion. RESPIRATORY: Denies cough, cold, or chest congestion. Denies shortness of b reath, difficulty breathing, or wheezing. GASTROINTESTINAL: Intermittent abdominal pain. Some nausea vomiting diarrhea. GENITOURINARY: Denies difficulty urinating, painful urination, burning, freque ncy, or blood in urine. MUSCULOSKELETAL: Denies neck or back pain or joint pain or swelling. SKIN: Denies rash or skin lesions. NEUROLOGICAL: Denies altered mental status or loss of consciousness. Denies headache. Denies weakness or paralysis or loss of use of either side. Denies problems with gait or speech. Denies sensory or motor loss. ALL OTHER SYSTEMS REVIEWED AND NEGATIVE. Physical Exam - Vital signs Vitals: Temp Pulse Resp BP Pulse Ox 98.8 F 76 16 133/73 H 96 12/01/18 14:32 12/01/18 14:32 12/01/18 14:32 12/01/18 14:32 12/01/18 14:32 - Notes Notes: General Appearance: Well nourished, alert, cooperative, no acute distress, no obvious discomfort. Well-appearing. Vitals: reviewed, See vital signs table. Head: no swelling or tenderness to the head Eyes: PERRL, EOMI, Conjuctiva clear Mouth: No decreasd moisture Lungs: No wheezing, No rales, No rhonci, No accessory muscle use, good air exchange bilaterally. Heart: Normal rate, Regular rythm, No murmur, no rub Abdomen: Normal BS, soft, No rigidity, mild left upper quadrant left lower quadrant double tenderness to palpation., No guarding, no rebound, no abdominal masses, no organomegaly Extremities: strength 5/5 in all extremities, good pulses in all extremities, no swelling or tenderness in the extremities, no edema. Skin: warm, dry, appropriate color, no rash Neuro: speech clear, oriented x 3, normal affect, responds appropriately to questions. Course - Re-evaluation Re-evalutation: 12/02/18 07:28 Patient is well-appearing. Labs and CT scan was ordered in triage. These are back. CT scan does not show any concerning findings. She does have a pulmonology nodules which I informed her about. Patient has not had any symptoms now in over 24 hours and therefore I feel safe to be discharged home. I will still prescribe her some nausea medicine because she has recurrent nausea. I encouraged her follow-up with her primary care physician next 2 days. I encouraged her return to ER immediately if she has fevers, recurrent abdominal pain, of intractable vomiting, bloody stools, or if she feels unwell. Patient agrees with plan will be discharged home. Dictation of this chart was performed using voice recognition software; therefore, there may be some unintended grammatical errors. - Vital Signs Vital signs: Temp Pulse Resp BP Pulse Ox 97.2 F 72 20 144/63 H 97 12/02/18 00:20 12/02/18 00:20 12/02/18 00:20 12/02/18 00:20 12/02/18 00:20 - Laboratory Result Diagrams: 12/01/18 20:15 12/01/18 20:15 Laboratory results interpreted by me: 12/01/18 12/01/18 12/01/18 20:15 20:15 20:15 Hgb 11.4 L Hct 34.9 L MCH 26.9 L RDW 16.1 H BUN 5 L Creatinine 0.47 L AST 51 H Total Protein 5.8 L Ur Leukocyte Esterase SMALL H Discharge - Discharge Clinical Impression: Abdominal pain Qualifiers: Abdominal location: unspecified location Qualified Code(s): R10.9 - Unspecified abdominal pain Diarrhea Qualifiers: Diarrhea type: unspecified type Qualified Code(s): R19.7 - Diarrhea, unspecified Condition: Good Disposition: HOME, SELF-CARE Additional Instructions: Please follow a high fiber diet. Please take the zofran only if you are having nausea. Please return to the ER if you have recurrent diarrhea, bloody stools, vomiting, or worsening abdominal pain. You do have a small nodule in the lungs. These needs to be reevaluated with a CT scan in 1 year. This can be performed through your primary care physician. Prescriptions: Ondansetron [Zofran Odt 4 mg Tablet] 1 tab PO Q4H PRN #10 tab.rapdis PRN Reason: For Nausea/Vomiting Referrals: LEONIDES KELLER MD [Primary Care Provider] - Follow up in 3-5 days
[2018-12-02 01:45] VITALS: BP 144/63
== END 2018-12-02 00:30 | disposition home or self-care (01) ==
LOC: ER 13:59
DX: R10.9 Unspecified abdominal pain (principal); R19.7 Diarrhea, unspecified; R11.2 Nausea with vomiting, unspecified; R10.812 Left upper quadrant abdominal tenderness; R10.814 Left lower quadrant abdominal tenderness; F17.200 Nicotine dependence, unspecified, uncomplicated
CPT/HCPCS: 36415; 74177; 80053; 81001; 83690; 85025; 87086; 87088; 87186; 99284

== ENCOUNTER 2019-05-24 12:02 | Emergency (ER) | payer MEDICARE, MEDICAID ==
[2019-05-24 12:25] VITALS: BP 118/63
[2019-05-24] MEDS ORDERED: ACETAMINOPHEN 325 MG TABLET PO ONE (13:16)
--- NOTE | 2019-05-24 13:20 | ER Document Report ---
HPI - HPI Time Seen by Provider: 05/24/19 13:09 Pain Level: 1 Notes: Patient is a 69-year-old female with a history of L-spine fusion, seizures, tobacco abuse, arthritis who presents complaining of left shoulder pain and low back pain status post fall 6 days ago. Patient states that she was walking in her yard when she tripped on a pinecone and twisted inappropriately. Patient states that she landed on her left side. Patient states that she has been able to ambulate since then normally. Patient does have increased pain with movement to the left shoulder as well as to her back. No history of diabetes, spinal abscess. She is able to eat and drink without difficulty. She is urinating normally and having normal bowel movements. Patient states that although she is urinating normally she does feel occasional burning. Denies any headache, fever, head injury, LOC, neck pain, changes in vision/speech/mentation/hearing, URI, sore throat, chest pain, palpitations, syncope, cough, shortness of breath, wheeze, dyspnea, abdominal pain, nausea/vomiting/diarrhea, urinary retention, dysuria, hematuria, loss of control of bowel or bladder, numbness/tingling, saddle anesthesia, muscle paralysis/weakness, or rash. - ROS Systems Reviewed and Negative: Yes All other systems reviewed and negative - EENT EENT: DENIES: Sore Throat, Ear Pain, Eye problems - NEURO Neurology: DENIES: Headache, Weakness, Vision blurred, Dizzinesss / Vertigo - CARDIOVASCULAR Cardiovascular: DENIES: Chest pain - RESPIRATORY Respiratory: DENIES: Trouble Breathing, Coughing - GASTROINTESTINAL Gastrointestinal: DENIES: Abdominal Pain, Black / Bloody Stools - URINARY Urinary: DENIES: Dysuria, Urgency, Frequency - REPRODUCTIVE Reproductive: DENIES: :, Postmenopausal, Abnormal bleeding / discharge - MUSCULOSKELETAL Musculoskeletal: REPORTS: Extremity pain - left shoulder Past Medical History - Social History Smoking Status: Current Every Day Smoker Family History: Other Patient has suicidal ideation: No Patient has homicidal ideation: No - Past Medical History Cardiac Medical History: Denies: Hx Coronary Artery Disease, Hx Heart Attack, Hx Hypertension Pulmonary Medical History: Reports: Hx Pneumonia - HX Denies: Hx Asthma, Hx Bronchitis, Hx COPD Neurological Medical History: Reports: Hx Seizures - 4 WEEKS AGO LAST ONE. Denies: Hx Cerebrovascular Accident Renal/ Medical History: Denies: Hx Peritoneal Dialysis Musculoskeletal Medical History: Denies Hx Arthritis Psychiatric Medical History: Reports: Hx Depression Past Surgical History: Reports: Hx Hysterectomy - Immunizations Hx Diphtheria, Pertussis, Tetanus Vaccination: Yes Vertical Provider Document - CONSTITUTIONAL Agree With Documented VS: Yes Notes: PHYSICAL EXAMINATION: GENERAL: appears frail and in no acute distress. Neck: no midline tenderness. FROM. Chest: + mild tenderness left lower ribs w/o ecchymosis or crepitus noted. LUNGS: Breath sounds clear to auscultation bilaterally and equal. No wheezes rales or rhonchi. HEART: Regular rate and rhythm without murmurs, rubs, gallops. ABDOMEN: Soft, nontender, nondistended abdomen. No guarding, no rebound. Normal bowel sounds present. No CVA tenderness bilaterally. No ecchymosis Musculoskeletal: Left shoulder: + mild tenderness left lateral shoulder. N/V intact distal. FROM. Strength 5+/5. LE's b/l: FROM to passive/active. Strength 5+/5. No deficits noted. No bony tenderness of extremities. Back: FROM to passive/active. Strength 5+/5. No vertebral point tenderness, stepoffs, or deformities. No other bony tenderness, erythema, swelling, or ecchymosis. SLR negative b/l. + mild tenderness to the L-paraspinal mm b/l. No SI jt tenderness. No foot drop Extremities: No cyanosis, clubbing, or edema b/l. Peripheral pulses 2+. Capillary refill less than 2 seconds. NEUROLOGICAL: Normal speech, normal gait. Normal sensory, motor exams. Reflexes 2+ b/l. PSYCH: Normal mood, normal affect. SKIN: Warm, Dry, normal turgor, no rashes or lesions noted. - INFECTION CONTROL TRAVEL OUTSIDE OF THE [place] IN LAST 30 DAYS: No Course - Re-evaluation Re-evalutation: 05/24/19 Patient is an afebrile, well-hydrated, 69-year-old female who presents to the ED with acute on chronic low back pain and left shoulder/rib pain s/p fall. Vitals are acceptable. PE is otherwise unremarkable for any focal neurological deficits, neurovascular compromise, obvious tendon/ligament rupture, obvious fracture/dislocation, septic joint. X-rays unremarkable for any acute pathology. UA unremarkable. She has no significant tachycardia, tachypnea, or hypoxia. She is nontoxic-appearing and is tolerating p.o. without difficulties. There are no signs of infection. No other red flag symptoms noted. No other labs or imaging warranted at this time based on H&P. Low suspicion for any meningitis, fracture, expanding/ruptured AAA, cauda equina syndrome, epidural mass lesion/abscess, herniated disc causing severe spinal stenosis, or other systemic infection at this time. Patient is aware that this condition can change from initial presentation and that she needs monitor symptoms closely for any acute changes. Conservative measures otherwise for symptoms. Recheck with your PCM in 3-5 days. Consider consult with orthopedic/physical therapy. Return to the ED with any worsening/concerning symptoms otherwise as reviewed discharge. Patient is in agreement. - Vital Signs Vital signs: Temp Pulse Resp BP Pulse Ox 98.7 F 72 15 118/63 97 05/24/19 12:21 05/24/19 12:21 05/24/19 12:21 05/24/19 12:21 05/24/19 12:21 Discharge - Discharge Clinical Impression: Acute exacerbation of chronic low back pain, Rib pain on left side Left shoulder pain Qualifiers: Chronicity: acute Qualified Code(s): M25.512 - Pain in left shoulder Condition: Stable Disposition: HOME, SELF-CARE Additional Instructions: Rest, Ice, Compression, Elevation Tylenol/ibuprofen as needed Light stretches daily Strength exercises as able Moist heat and massage may help F/u with your PCP in 3-5 days for a recheck Consider consult(s) with Orthopedics/physical therapy for ongoing/worsening symptoms Return to the ED with any worsening symptoms and/or development of fever, headache, chest pain, palpitations, syncope, shortness of breath, trouble breathing, abdominal pain, n/v/d, blood in stool/urine, loss of control of bowel/bladder, urinary retention, muscle weakness/paralysis, saddle anesthesia, numbness/tingling, or other worsening symptoms that are concerning to you. Prescriptions: Naproxen 500 mg PO BID #10 tablet Forms: Smoking Cessation Education Referrals: LEONIDES KELLER MD [Primary Care Provider] - Follow up as needed [facility] [Provider Group] - Follow up as needed
[2019-05-24 14:19] LABS: APPEARANCE,URINE CLEAR; BILIRUBIN,URINE NEGATIVE (NEGATIVE); COLOR,URINE YELLOW; GLUCOSE, URINE NEGATIVE (NEGATIVE); KETONES,URINE NEGATIVE (NEGATIVE); LEUKOCYTE ESTERASE,URINE TRACE (NEGATIVE); NITRITE,URINE NEGATIVE (NEGATIVE); PROTEIN,URINE NEGATIVE (NEGATIVE); UROBILINOGEN,URINE NEGATIVE mg/dL (<2.0)
--- NOTE | 2019-05-24 14:53 | RADIOLOGY REPORT (SQ) ---
EXAM DESCRIPTION: SHOULDER LEFT 2 OR MORE VIEWS COMPLETED DATE/TIME: 05/24/2019 1:47 pm REASON FOR STUDY: pain s/p fall COMPARISON: None. NUMBER OF VIEWS: Three views. TECHNIQUE: Internal rotation, external rotation, and Y view images acquired of the left shoulder. LIMITATIONS: None. FINDINGS: MINERALIZATION: Normal. BONES: No acute fracture. No worrisome bone lesions. JOINTS: No dislocation. There is narrowing of the subacromial space. VISUALIZED LUNGS AND RIBS: No pneumothorax. No rib fracture. SOFT TISSUES: No radiopaque foreign body. OTHER: No other significant finding. IMPRESSION: The study is normal except for narrowing the subacromial space. This may suggest chroni c rotator cuff disease. TECHNICAL DOCUMENTATION: JOB ID: [id number] [employer]- All Rights Reserved Reading location - IP/workstation name: [email or web address]
--- NOTE | 2019-05-24 14:54 | RADIOLOGY REPORT (SQ) ---
EXAM DESCRIPTION: L SPINE WHOLE COMPLETED DATE/TIME: 05/24/2019 1:47 pm REASON FOR STUDY: pain s/p fall COMPARISON: None. NUMBER OF VIEWS: Five views including obliques. TECHNIQUE: AP, lateral, oblique, and sacral radiographic images acquired of the lumbar spine. LIMITATIONS: None. FINDINGS: MINERALIZATION: Normal. SEGMENTATION: Normal. No transitional anatomy. ALIGNMENT: Dextroscoliosis. VERTEBRAE: Maintained height. No fracture or worrisome bone lesion. DISCS: Preserved height. No significant osteophytes or end plate irregularity. POSTERIOR ELEMENTS: Pedicles and facets are intact. No pars defect or posterior arch defects. HARDWARE: None in the spine. PARASPINAL SOFT TISSUES: Normal. PELVIS: Intact as visualized. No fractures or worrisome bone lesions. SI joints intact. OTHER: No other significant finding. IMPRESSION: Scoliosis. TECHNICAL DOCUMENTATION: JOB ID: [id number] [employer]- All Rights Reserved Reading location - IP/workstation name: [email or web address]
--- NOTE | 2019-05-24 14:55 | RADIOLOGY REPORT (SQ) ---
EXAM DESCRIPTION: RIBS LEFT W/PA CHEST COMPLETED DATE/TIME: 05/24/2019 1:47 pm REASON FOR STUDY: pain s/p fall COMPARISON: None. TECHNIQUE: Frontal view of the chest and additional views of the left ribs acquired. NUMBER OF VIEWS: Three view. LIMITATIONS: None. FINDINGS: FRONTAL CXR: No pneumothorax. No pleural effusion. No atelectasis or infiltrates. RIBS: No displaced rib fractures. No lytic or blastic bony lesions. OTHER: No other significant finding. IMPRESSION: NO PNEUMOTHORAX. NO DISPLACED RIB FRACTURES. COMMENT: SITE OF TRAUMA/COMPLAINT MARKED/STAMP COMPLETED: No TECHNICAL DOCUMENTATION: JOB ID: [id number] [employer]- All Rights Reserved Reading location - IP/workstation name: [email or web address]
== END 2019-05-24 15:38 | disposition home or self-care (01) ==
LOC: ER 12:02
DX: M54.5 Low back pain (principal); G89.29 Other chronic pain; R07.81 Pleurodynia; M25.512 Pain in left shoulder; W01.0XXA Fall on same level from slipping, tripping and stumbling without subsequent striking against object, initial encounter; Y92.007 Garden or yard of unspecified non-institutional (private) residence as the place of occurrence of the external cause; Z98.1 Arthrodesis status; F17.200 Nicotine dependence, unspecified, uncomplicated; Z90.710 Acquired absence of both cervix and uterus
CPT/HCPCS: 99283; 81001; 72110; 71101; 73030; A9270

== ENCOUNTER 2020-01-03 15:08 | Emergency (ER) | payer MEDICARE, MEDICAID ==
--- NOTE | 2020-01-03 16:10 | RADIOLOGY REPORT (SQ) ---
EXAM DESCRIPTION: HIP LEFT AP/LATERAL COMPLETED DATE/TIME: 01/03/2020 3:28 pm REASON FOR STUDY: fall; possible deformity COMPARISON: None. NUMBER OF VIEWS: Two views. TECHNIQUE: AP pelvis and additional frog-leg view of the left hip. LIMITATIONS: None. FINDINGS: MINERALIZATION: Normal. LEFT HIP: No fracture or dislocation. No worrisome bone lesions. RIGHT HIP: No fracture or dislocation. No worrisome bone lesions. PUBIS AND ISCHIUM: No fracture. PELVIS: No fracture. SACRUM: No fracture or dislocation. No worrisome bone lesions. LOWER LUMBAR SPINE: No fracture or dislocation. No worrisome bone lesions. No significant disc disea se. SOFT TISSUES: Clip left lower quadrant. OTHER: No other significant finding. IMPRESSION: No fracture. TECHNICAL DOCUMENTATION: JOB ID: [id number] [employer]- All Rights Reserved Reading location - IP/workstation name: [email or web address]
--- NOTE | 2020-01-03 16:49 | ER Document Report ---
ED General - General Chief Complaint: Hip Injury Stated Complaint: FALL Primary Care Provider: LEONIDES KELLER MD [Primary Care Provider] - Follow up as needed Notes: Patient is a 69-year-old white female with a past medical history significant for frequent falls related to chronic gait disturbance who walks with a walker at baseline who presents to the emergency department with a chief complaint of left hip pain after a fall that occurred 2 days ago. Patient reports that she was getting out of bed at about 2 AM to go to the restroom when she lost her reworker on the walker causing her to fall onto the left hip. She states she was able to pull herself up, use the restroom, wash her hands and go back to bed. She states she has been doing some minor activities over the past 2 days but has had ongoing severe sharp shooting pain in the left hip. States the pain radiates down to the left knee. Denies striking the knee. Denies any numbness tingling or weakness. She denies any head injury or loss of consciousness. Denies any syncopal episodes, chest pain or shortness of breath. TRAVEL OUTSIDE OF THE [place] IN LAST 30 DAYS: No - Related Data Allergies/Adverse Reactions: influenza virus vaccine, specific Allergy (Verified 01/03/20 15:24) meclizine Adverse Reaction (Severe, Verified 01/03/20 15:24) Hallucinations Past Medical History - Social History Smoking Status: Current Every Day Smoker Family History: Other Patient has suicidal ideation: No Patient has homicidal ideation: No - Past Medical History Cardiac Medical History: Denies: Hx Coronary Artery Disease, Hx Heart Attack, Hx Hypertension Pulmonary Medical History: Reports: Hx Pneumonia - HX Denies: Hx Asthma, Hx Bronchitis, Hx COPD Neurological Medical History: Reports: Hx Seizures - 4 WEEKS AGO LAST ONE. Denies: Hx Cerebrovascular Accident Renal/ Medical History: Denies: Hx Peritoneal Dialysis Musculoskeletal Medical History: Denies Hx Arthritis Psychiatric Medical History: Reports: Hx Depression Past Surgical History: Reports: Hx Hysterectomy - Immunizations Hx Diphtheria, Pertussis, Tetanus Vaccination: Yes Review of Systems - Review of Systems Musculoskeletal: Joint pain -: Yes All other systems reviewed and negative Physical Exam - Vital signs Vitals: Temp Pulse Resp BP Pulse Ox 97.8 F 100 16 115/72 100 01/03/20 15:09 01/03/20 15:01/03/20 15:09 01/03/20 15:09 01/03/20 15:09 - General General appearance: Appears well, Alert In distress: None - Respiratory Respiratory status: No respiratory distress Chest status: Nontender Breath sounds: Normal Chest palpation: Normal - Cardiovascular Rhythm: Regular Heart sounds: Normal auscultation - Abdominal Inspection: Normal Distension: No distension Bowel sounds: Normal Tenderness: Nontender Organomegaly: No organomegaly - Extremities Hip: Other - Tenderness to the lateral edge of the left greater trochanter. No obvious deformities. Range of motion testing greatly limited by patient's pain. Neurovascularly intact distally with a 2+ DP/PT bilaterally. Gait testing limited by pain and mobility. - Neurological Neuro grossly intact: Yes Cognition: Normal Orientation: AAOx4 [place] Coma Scale Eye Opening: Spontaneous [place] Coma Scale Verbal: Oriented [place] Coma Scale Motor: Obeys Commands [place] Coma Scale Total: 15 Speech: Normal Sensory: Normal - Psychological Associated symptoms: Normal affect, Normal mood - Skin Skin Temperature: Warm Skin Moisture: Dry Skin Color: Normal Course - Re-evaluation Re-evalutation: 01/03/20 17:54 X-ray equivocal when compared with patient's exam. CT scan of the pelvis was obtained, radiologist interpreted as negative for any acute process. Patient's history and physical consistent with a fall and hip contusion. She was given a Rutledge here. Sent home with a short course of Rutledge for pain. We discussed fall risks and not to be up and moving while taking pain medicines or operating any machinery or performing any tasks that require full focused attention and balance. She and her partner at bedside verbalized understood and agreed. Counseled him at length regarding the importance of outpatient follow-up and advised they return here or any ER immediately with any new, persistent or worsening symptoms. They verbalized understood and agreed. 01/03/20 17:57 [facility] pulled, showing no chronic or recent controlled substance prescriptions - Vital Signs Vital signs: Temp Pulse Resp BP Pulse Ox 97.8 F 100 16 115/72 100 01/03/20 15:01/03/20 15:01/03/20 15:01/03/20 15:01/03/20 15:09 Discharge - Discharge Clinical Impression: Contusion, hip Qualifiers: Encounter type: initial encounter Laterality: left Qualified Code(s): S70.02XA - Contusion of left hip, initial encounter Fall Qualifiers: Encounter type: initial encounter Qualified Code(s): W19.XXXA - Unspecified fall, initial encounter Condition: Stable Disposition: HOME, SELF-CARE Instructions: Contusion ([facility]) Additional Instructions: Follow-up with your regular doctor in 2 to 3 days for reevaluation. Return here or any ER immediately with any new, persistent or worsening symptoms. Prescriptions: Hydrocodone/Acetaminophen [Rutledge 5-325 mg Tabs (6 Tab/ER Disp)] 6 tab PO ONCE PRN #1 [id number] PRN Reason: Referrals: LEONIDES KELLER MD [Primary Care Provider] - Follow up as needed
--- NOTE | 2020-01-03 17:28 | RADIOLOGY REPORT (SQ) ---
EXAM DESCRIPTION: CT PELVIS WITHOUT COMPLETED DATE/TIME: 01/03/2020 5:01 pm REASON FOR STUDY: left hip trauma COMPARISON: Left hip films 01/03/2020 TECHNIQUE: CT scan of the pelvis performed without intravenous or oral contrast. Images reviewed wi th soft tissue and bone windows. Reconstructed coronal and sagittal MPR images reviewed. All images stored on PACS. All CT scanners at this facility use dose modulation, iterative reconstruction, and/or weight based d osing when appropriate to reduce radiation dose to as low as reasonably achievable (ALARA). [facility]: Dose Right [facility]: CareDose [facility]: Dose Right [facility]: Teradose 4D [facility]: [employer] RADIATION DOSE: CT Rad equipment meets quality standard of care and radiation dose reduction techniq ues were employed. CTDIvol: 11.4 mGy. DLP: 365 mGy-cm. mGy. LIMITATIONS: None. FINDINGS: PELVIC BONES: No acute fracture. No worrisome bone lesions. VISUALIZED SPINE: No acute findings. HIPS: No acute fracture or dislocation. No worrisome bone lesions. PELVIC SOFT TISSUES: Post hysterectomy EXTRAPELVIC SOFT TISSUES: No significant findings. OTHER: Findings discussed with Dr. Epps IMPRESSION: NO ACUTE OR SIGNIFICANT FINDINGS. TECHNICAL DOCUMENTATION: JOB ID: [id number] Quality ID # [id number]: Final reports with documentation of one or more dose reduction techniques (e.g., Au tomated exposure control, adjustment of the mA and/or kV according to patient size, use of iterative reconstruction technique) 2010 [employer] All Rights Reserved Reading location - IP/workstation name: [email or web address]
[2020-01-03] MEDS ORDERED: HYDROCODONE/ACETAMINOPHEN 5-325 MG TABLET PO ONE (17:36)
[2020-01-03 18:27] VITALS: BP 122/104
== END 2020-01-03 18:18 | disposition home or self-care (01) ==
LOC: ER 15:08
DX: M25.552 Pain in left hip (principal); W19.XXXA Unspecified fall, initial encounter; Y93.89 Activity, other specified; R26.9 Unspecified abnormalities of gait and mobility; F17.200 Nicotine dependence, unspecified, uncomplicated; Z88.7 Allergy status to serum and vaccine
CPT/HCPCS: 99284; 73502; 72192; A9270

== ENCOUNTER → 2020-08-27 | Outpatient (CLI) | payer MEDICARE, MEDICAID ==
--- NOTE | 2020-08-27 17:16 | RADIOLOGY REPORT (SQ) ---
EXAM DESCRIPTION: FEMUR LEFT; HIP LEFT AP/LATERAL IMAGES COMPLETED DATE/TIME: 08/27/2020 10:05 am REASON FOR STUDY: LEFT HIP PAIN after fall 1 month ago. COMPARISON: None. EXAM PARAMETERS: NUMBER OF VIEWS: Four views TECHNIQUE: AP pelvis and additional frog-leg view of the left hip. AP and lateral views left femur. LIMITATIONS: None. FINDINGS: MINERALIZATION: Normal. LEFT HIP: No fracture or dislocation. No worrisome bone lesions. No contour deformity. No joint spa ce narrowing. RIGHT HIP: No fracture or dislocation. No worrisome bone lesions. PUBIS AND ISCHIUM: No fracture. PELVIS: No fracture. SACRUM: No fracture or dislocation. No worrisome bone lesions. LOWER LUMBAR SPINE: No fracture or dislocation. No worrisome bone lesions. No significant disc disea se. SOFT TISSUES: Surgical clip left pelvis. OTHER: No other significant finding. IMPRESSION: No acute fracture or dislocation of the pelvis, left hip or femur. TECHNICAL DOCUMENTATION: JOB ID: [id number] 2010 [id number]- All Rights Reserved Reading location - IP/workstation name: [email or web address]
--- NOTE | 2020-08-27 17:16 | RADIOLOGY REPORT (SQ) ---
EXAM DESCRIPTION: FEMUR LEFT; HIP LEFT AP/LATERAL IMAGES COMPLETED DATE/TIME: 08/27/2020 10:05 am REASON FOR STUDY: LEFT HIP PAIN after fall 1 month ago. COMPARISON: None. EXAM PARAMETERS: NUMBER OF VIEWS: Four views TECHNIQUE: AP pelvis and additional frog-leg view of the left hip. AP and lateral views left femur. LIMITATIONS: None. FINDINGS: MINERALIZATION: Normal. LEFT HIP: No fracture or dislocation. No worrisome bone lesions. No contour deformity. No joint spa ce narrowing. RIGHT HIP: No fracture or dislocation. No worrisome bone lesions. PUBIS AND ISCHIUM: No fracture. PELVIS: No fracture. SACRUM: No fracture or dislocation. No worrisome bone lesions. LOWER LUMBAR SPINE: No fracture or dislocation. No worrisome bone lesions. No significant disc disea se. SOFT TISSUES: Surgical clip left pelvis. OTHER: No other significant finding. IMPRESSION: No acute fracture or dislocation of the pelvis, left hip or femur. TECHNICAL DOCUMENTATION: JOB ID: [id number] 2010 [employer]- All Rights Reserved Reading location - IP/workstation name: [email or web address]
== END ==
LOC: RAD 10:31
PROVIDERS: ATTEND Nurse Practitioner Family
DX: M25.532 Pain in left wrist (principal)